=== PATIENT | male | born 2000 | race Caucasian/White ===

== ENCOUNTER 2023-10-10 20:58 | Emergency (ER) | payer OTHER, SELFPAY ==
[2023-10-10 21:05] VITALS: BP 126/82; PULSE 68; RESP 16; TEMP 36.2; O2SAT 97
[2023-10-10] MEDS: LIDOCAINE/EPINEP/TETRACAINE 3 ML GEL..ML. TOPICAL (21:35)
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
[2023-10-10 22:33] LABS: Appearance Urine Clear (Clear); Bilirubin Urine Negative (Negative); Blood Urine Negative (Negative); Color Urine Yellow (Yellow); Glucose Urine Negative (Negative); Ketones Urine Negative (Negative); Leukocyte Esterase Urine Negative (Negative); Nitrite Urine Negative (Negative); Protein Urine Negative (Negative); Urobilinogen Urine 0.2 (0.2-1.0)
[2023-10-10] MEDS: ACETAMINOPHEN 500 MG TABLET 1000 MG PO (23:03)
== END 2023-10-10 23:11 | disposition home or self-care (01) ==
PROVIDERS: Emergency Provider Family Medicine
DX: S01.01XA Laceration without foreign body of scalp, initial encounter (principal); V19.3XXA Pedal cyclist (driver) (passenger) injured in unspecified nontraffic accident, initial encounter
CPT/HCPCS: 12001; 81003; 99283; 99284; A9270

== ENCOUNTER 2023-10-20 19:53 | Emergency (ER) | payer OTHER, SELFPAY ==
[2023-10-20 19:59] VITALS: BP 114/70; PULSE 113; RESP 16; TEMP 36.4; O2SAT 100; BMI 26.2
--- NOTE | 2023-10-20 20:05 | ED.NURSE ---
3 max removed with staple remover. Wound is well approximated and healing well. no concern for infection. All patient questions answered.
== END 2023-10-20 20:23 | disposition home or self-care (01) ==
PROVIDERS: Emergency Provider Emergency Medicine
DX: S01.01XA Laceration without foreign body of scalp, initial encounter (principal); V19.40XA Pedal cycle driver injured in collision with unspecified motor vehicles in traffic accident, initial encounter
CPT/HCPCS: 12002; 99283